=== PATIENT | male | born 1980 ===

== ENCOUNTER 2022-02-09 06:00 | Day surgery (SDC) | payer OTHER ==
[~2022-02-09] VITALS: Ht 264.2 cm; Wt 86.2 kg
== END 2022-02-09 13:50 | disposition home or self-care (01) ==
LOC: CIR.AMB 06:00
PROVIDERS: ATTEND Urology
DX: N47.1 Phimosis (principal); Z20.822 Contact with and (suspected) exposure to COVID-19; Z86.16 Personal history of COVID-19